=== PATIENT | male | born 2000 | race Caucasian/White ===

== ENCOUNTER 2022-02-10 08:57 | Emergency (ER) | payer SELFPAY ==
[~2022-02-10] VITALS: Ht 182.9 cm; Wt 75.0 kg
[2022-02-10 09:06] VITALS: BP 141/95
== END 2022-02-10 09:13 | disposition home or self-care (01) ==
LOC: ER 08:57
DX: Z02.89 Encounter for other administrative examinations (principal); V98.8XXA Other specified transport accidents, initial encounter; Y93.89 Activity, other specified; Y92.89 Other specified places as the place of occurrence of the external cause; Y99.8 Other external cause status
CPT/HCPCS: 99283